=== PATIENT | male | born 2000 | race Hispanic/Latino ===

== ENCOUNTER 2023-11-06 14:05 | Emergency (ER) | payer OTHER ==
[2023-11-06] VITALS (13 sets, daily range): BP systolic 101–128; BP diastolic 52–87
[~2023-11-06] VITALS: Ht 188 cm; Wt 86.1 kg
[2023-11-06] MEDS ORDERED: METHOCARBAMOL500 MG PO (17:51)
[2023-11-06] MEDS ORDERED: NAPROXEN500 MG PO (17:51)
== END 2023-11-06 18:01 | disposition home or self-care (01) | DRG 605 ==
LOC: ED 14:05
DX: S00.83XA Contusion of other part of head, initial encounter (principal); V49.40XA Driver injured in collision with unspecified motor vehicles in traffic accident, initial encounter